=== PATIENT | male | born 1955 ===

== ENCOUNTER 2024-11-13 05:56 | Day surgery (SDC) | payer OTHER ==
[~2024-11-13 05:56] MED LIST: DIOVAN40 MG; LIPITOR40 MG; LOPRESSOR25 MG; METFORMIN HCL500 MG
[2024-11-13] MEDS ORDERED: DIPHENHYDRAMINE HCL 50 MG/ML VIAL 1ML IV ONE (08:45)
[2024-11-13] MEDS ORDERED: MIDAZOLAM HCL 2 MG/2 ML VIAL IV ONE (08:45)
[2024-11-13] MEDS ORDERED: fentaNYL CITRATE 50 MCG/ML AMPUL IV PUSH ONE (08:45)
== END 2024-11-13 09:40 | disposition home or self-care (01) ==
LOC: AMB-ENDOS 05:56
PROVIDERS: ATTEND Internal Medicine
DX: D12.2 Benign neoplasm of ascending colon (principal); D12.5 Benign neoplasm of sigmoid colon; K63.5 Polyp of colon; Z86.0101 Personal history of adenomatous and serrated colon polyps